=== PATIENT | female | born 1955 | race Two or more races ===

== ENCOUNTER 2024-06-14 14:47 | Inpatient (IN) | payer OTHER ==
[~2024-06-14] VITALS: Ht 170.2 cm; Wt 49.4 kg
[~2024-06-14 14:47] MED LIST: FURO20TA3 PO; METO25TA93 PO; SACU1TAB PO
[2024-06-14 18:38] VITALS: BP 168/106; PULSE 109; RESP 20; TEMP 97.6; O2SAT 96
[2024-06-14] MEDS ORDERED: MORPHINE SULFATE INJ 2 MG/ml SYRG IV PRN ×2 (18:45)
[2024-06-14] MEDS ORDERED: ONDANSETRON HCL 4 MG/2 ML VIAL IV PRN (18:45)
[2024-06-14] MEDS ORDERED: NITROGLYCERIN 0.4 MG SL TAB SL PRN (18:45)
[2024-06-14 20:00] VITALS: PULSE 83; PULSE 91; RESP 18; O2SAT 96
[2024-06-15] VITALS (15 sets, daily range): BP systolic 97–153; BP diastolic 30–102; PULSE 72–108; RESP 16–98; TEMP 97.5–98.4; O2SAT 95–100
[2024-06-15 00:22] LABS: Urine Bacteria None Seen /hpf (None Seen)
[2024-06-15 00:31] LABS: Urine Blood Negative /uL (Negative); Urine Clarity Clear (Clear); Urine Color Colorless (Yellow); Urine Protein, UAD Negative (Negative); Urine Specific Gravity 1.011 (1.001-1.035); Urine Urobilinogen Normal (Negative); Urine WBC 22 /hpf (0 - 5)
--- NOTE | 2024-06-15 02:13 | DVHHP2 ---
CYN RUSH STONE TRIMMER 06/15/24 0213: History of Present Illness Reason for Visit: Shortness of Breath History of Present Illness Daysi Bautista is a 68 y.o. female patient with history of heart failure and hypertension who presents with a chief complaint shortness of breath. The patient states that she had a similar episode 2 to 3 weeks ago and was seen at the [facility] had pleural effusions drained bilaterally. Patient followed up with employee relation manager who took her off Diuretics. Patient endorses shortness of breath is worsened With walking. Is unable to tolerate Laying back. Patient denies fevers, chills,Dizziness, chest pain, Recent illness, Leg swelling. Initially seen and treated at [facility] And transferred to [facility] per O request. Initial findings as follow Labs W 14.07, H&H 10.5/33.4, PLT 721 Na 142, K4.0, BUN 32, creatinine 1.70, GFR 33 Bnp 45,321 Troponin 28 LA 2.1/2.1/1.4 UA negative CXR: small right sided pleural fusion. By basilar airspace disease which may represent Evelyn versus pneumonia. Mild to moderate reticular markings at the bilateral lung monteiro which may represent pulmonary edema versus underlying interstitial lung disease. ECG sinus tachycardia 114 Cardiovascular: CHF, HTN Smoke: No ALCOHOL: none Drugs: None Lives: with Family Review of Systems Constitutional: No: Fever, Chills, Sweats, Weakness, Malaise, Other Eyes: No: Pain, Vision change, Conjunctivae inflammation, Eyelid inflammation, Other, Redness ENT: No: Ear pain, Ear discharge, Nose pain, Nose discharge, Nose congestion, Mouth pain, Mouth swelling, Throat pain, Throat swelling, Other Respiratory: Shortness of breath, SOB with excertion; No: Cough, Dry, Wheezing, Hemoptysis, Pleuritic Pain, Sputum, Wheezing, Other Cardiovascular: No: Chest Pain, Palpitations, Orthopnea, Paroxysmal Noc. Dyspnea, Edema, Lt Headedness, Other Gastrointestinal: No: Nausea, Vomiting, Abdominal Pain, Diarrhea, Constipation, Melena, Hematochezia, Other Genitourinary: No Dysuria, No Frequency, No Incontinence, No Hematuria, No Retention, No Other Musculoskeletal: No: other, neck pain, shoulder pain, arm pain, back pain, hand pain, leg pain, foot pain Skin: No: Rash, Lesions, Jaundice, Bruising, Other Neurological: No: Weakness, Numbness, Incoordination, Change in speech, Confusion, Seizures, Other Allergies: Coded Allergies: NO KNOWN ALLERGIES (Unverified , 06/14/24) Medications Current Medications Medications Dose Ordered Sig/Mariia Route Start Time Stop Time Status Last Admin Dose Admin Nitroglycerin 0.4 mg Q5MINP PRN SL 06/14/24 18:45 Morphine Sulfate 2 mg Q30M PRN IV 06/14/24 18:45 Furosemide 40 mg BIDD IV 06/15/24 06:00 Ondansetron HCl 4 mg Q4HPRN PRN IV 06/14/24 18:45 Famotidine 20 mg DAILY PO 06/15/24 10:00 Morphine Sulfate 2 mg Q4HPRN PRN IV 06/14/24 18:45 Enoxaparin Sodium 40 mg DAILY SC 06/15/24 10:00 Exam Vital Signs Vital Signs Date Time Temp Pulse Resp B/P (MAP) Pulse Ox O2 Delivery O2 Flow Rate FiO2 06/15/24 01:00 98.4 90 18 144/88 (106) 96 98.4 06/14/24 20:00 Room Air* 0 21 General Appearance: Alert, Oriented X3, Cooperative, No acute distress HEENT: Atraumatic, PERRLA, EOMI Respiratory: Clear to auscultation, Normal air movement Cardiovascular: Regular rate, Normal S1, Normal S2 Abdominal: Normal bowel sounds, Soft, No tenderness Extremities: No clubbing, No cyanosis, No edema Skin: No breakdown Neuro: Normal speech Psych/Mental Status: Mental status NL, Mood NL Labs/Xrays Labs Test 06/14/24 23:00 06/14/24 19:18 Range/Units Urine Color Colorless Yellow Urine Clarity Clear Clear Urine pH 5.0 5.0-9.0 Urine Specific [place] 1.011 1.001-1.035 Urine Protein Negative Negative Urine Ketones Negative Negative Urine Blood Negative Negative /uL Urine Nitrite Negative Negative Urine Bilirubin Negative Negative Urine Urobilinogen Normal Negative mg/dL Urine Leukocyte Esterase 1+ Negative /uL Urine RBC 2 0 - 4 /hpf Urine WBC 22 0 - 5 /hpf Urine Squamous Epithelial Cells Few <5 /hpf Urine Bacteria None seen None Seen /hpf Urine Glucose Normal Normal mg/dL Troponin I High Sensitivity 20 </=34 ng/L Assessment/Plan Assessment/Plan Acute on Chronic CHF exacerbation Exertional dyspnea with hypoxia Bilateral pneumonia Leukocytosis Hypertension Plan Admit to telemetry Cardiology consult. Echocardiogram. As needed anti-hypertensive for optimal BP management. Diurese with Lasix. Bronchodilators. As needed supplemental O2 to maintain oxygen saturation greater than 93%. IV ABX Physical therapy evaluation G.I. prophylaxis Pepcid / DVT prophylaxis lovenox Plan discussed with: Patient Date of Service: Jun 15, 2024 Billing Provider: RYAN LIU MD Common Visit Codes: NOT BILLABLE RYAN LIU MD 06/15/24 1437: Review of Systems Allergies: Coded Allergies: NO KNOWN ALLERGIES (Unverified , 06/14/24) Additional Comments Additional Comments Additional Comments Patient was shortness reviewed. Patient was evaluated and admitted by this practitioner. I agree with the nurse practitioner was evaluation, documentation, assessment and care plan as outlined. Patient was evaluated by me this afternoon CYN RUSH NP Jun 15, 2024 02:13 RYAN LIU MD Jun 15, 2024 14:37
--- NOTE | 2024-06-15 04:56 | DVH ---
CHEST RADIOGRAPH Indication:chf Technique: Single frontal view of the chest was obtained Comparison: None FINDINGS: Lines and Tubes: None Lungs: Bilateral interstitial prominence without focal airspace consolidation. Pleura: No effusion. No pneumothorax. Cardiomediastinal contours: Unremarkable Bones: No acute osseous abnormality. IMPRESSION: 1. Bilateral interstitial prominence which may reflect congestion or chronic lung disease. No focal a irspace consolidation.
[2024-06-15] MEDS: FUROSEMIDE 40 MG/4 ML VIAL IV SCH (05:48)
[2024-06-15 06:46] LABS: Basophils # (auto) 0.1 10 ^3/uL (0-0.2); Basophils % (auto) 0.7 % (0.0-2.0); Eosinophils # (auto) 0.3 10 ^3/uL (0-0.8); Hematocrit 30.9 % (36.0-46.0); Hemoglobin 10.4 g/dL (12.2-16.2); Lymphocytes # (auto) 1.7 10 ^3/uL (0.4-5.4); Monocytes # (auto) 0.8 10 ^3/uL (0-1.3)
[2024-06-15 06:48] LABS: Anion Gap 10 (5-15); Carbon Dioxide 23 mmol/L (20-31); Chloride 110 mmol/L (98-107); Lymphocytes % (auto) 18.9 % (10.0-50.0); Mean Corpuscular Hemoglobin 27.3 pg (28.0-32.0); Mean Corpuscular Hgb Conc. 33.6 g/dL (32.0-36.0); Mean Corpuscular Volume 81.2 fL (80.0-100.0); Monocytes % (auto) 8.8 % (0.0-12.0); Neutrophils # (auto) 6.3 10 ^3/uL (1.6-8.6); Neutrophils % (auto) 68.6 % (37.0-80.0); Nucleated Red Blood Cells % 0.1 %; Platelet Count (auto) 747 10^3/uL (140-450); Potassium 3.8 mmol/L (3.5-5.1); Red Cell Distribution Width 17.4 % (11.8-14.3); Sodium 143 mmol/L (136-145); White Blood Cell 9.2 10^3/uL (4.4-10.8)
[2024-06-15 06:53] LABS: INR 1.11 (0.9-1.15); Partial Thromboplastin Time 31.2 SEC (24.5-34.5); Prothrombin Time 11.7 sec (9.3-11.8)
[2024-06-15 06:54] LABS: BUN/Creatinine Ratio 16.9 (10.0-20.0); Blood Urea Nitrogen 33 mg/dL (9-23); Glucose 94 mg/dL (74-106)
[2024-06-15] MEDS: FAMOTIDINE 20 MG TAB PO SCH (10:18)
[2024-06-15] MEDS: cefTRIAXone 1GM/50ML D5W 50 ML IV SCH (10:19)
[2024-06-15] MEDS: ENOXAPARIN SOD 40 MG/0.4 ML SYRINGE SC SCH (10:19)
--- NOTE | 2024-06-15 12:16 | DVHINCON2 ---
Date of service: Jun 16, 2024 History of Present Illness 68 yo F with hx of CHF dx at [facility] on entreto, frail cachexia admitted for ADHF. bnp is very high Past Medical History reviewed Family History: Patient reports no known family medical history. Allergies: Coded Allergies: NO KNOWN ALLERGIES (Unverified , 06/14/24) Home Meds Active Scripts Ipratropium-Albuterol (Ipratropium [place]/Albut) 1 Kathrin Kathrin, 1 KATHRIN IN BID, #90 ML Prov:RYAN LIU MD 06/16/24 Furosemide (Furosemide) 20 Mg Tab, 1 TAB PO DAILY for 30 Days, #30 TAB Prov:RYAN LIU MD 06/16/24 Sacubitril-Valsartan (Entresto 24-26 mg) 1 Tab Tab, 1 TAB PO BID for 30 Days, #60 TAB Prov:RYAN LIU MD 06/16/24 Metoprolol Succinate (Metoprolol Succinate Er) 25 Mg Tab, 1 TAB PO DAILY for 30 Days, #30 TAB Prov:RYAN LIU MD 06/16/24 Current Medications Current Medications Medications (Trade) Dose Ordered Sig/Mariia Route PRN Reason Start Time Stop Time Status Last Admin Nitroglycerin (Ntrostat Sublingual) 0.4 mg Q5MINP PRN SL FOR CHEST PAIN 06/14/24 18:45 Morphine Sulfate 2 mg Q30M PRN IV FOR CHEST PAIN 06/14/24 18:45 Furosemide (Lasix Injection) 40 mg BIDD IV 06/15/24 06:00 06/15/24 05:48 Ondansetron HCl (Zofran) 4 mg Q4HPRN PRN IV NAUSEA / VOMITING 06/14/24 18:45 Famotidine (Pepcid Tablet) 20 mg DAILY PO 06/15/24 10:00 06/15/24 10:18 Morphine Sulfate 2 mg Q4HPRN PRN IV SEVERE PAIN (7-10 PAIN SCALE) 06/14/24 18:45 Enoxaparin Sodium (Lovenox) 40 mg DAILY SC 06/15/24 10:00 06/15/24 10:19 Ceftriaxone Sodium 50 ml @ 100 mls/hr DAILY@09 IV 06/15/24 09:00 06/15/24 10:19 Review of Systems 10 pt ros otherwise negative Vital Signs Vital Signs Date Time Temp Pulse Resp B/P (MAP) Pulse Ox O2 Delivery O2 Flow Rate FiO2 06/15/24 09:30 98.1 95 16 135/97 (110) 96 98.1 06/14/24 20:00 Room Air* 0 21 Physical Exam nad s1 s2 rrr diffuse rhonchi abd soft nt/nd no edema Labs/Diagnostic Data Labs Test 06/15/24 04:38 06/14/24 23:00 Range/Units White Blood Count 9.2 4.4-10.8 10^3/uL Red Blood Count 3.80 L 4.0-5.20 10^6/uL Hemoglobin 10.4 L 12.2-16.2 g/dL Hematocrit 30.9 L 36.0-46.0 % Mean Corpuscular Volume 81.2 80.0-100.0 fL Mean Corpuscular Hemoglobin 27.3 L 28.0-32.0 pg Mean Corpuscular Hemoglobin Concent 33.6 32.0-36.0 g/dL Red Cell Distribution Width 17.4 H 11.8-14.3 % Platelet Count 747 H 140-450 10^3/uL Mean Platelet Volume 7.8 6.9-10.8 fL Neutrophils (%) (Auto) 68.6 37.0-80.0 % Lymphocytes (%) (Auto) 18.9 10.0-50.0 % Monocytes (%) (Auto) 8.8 0.0-12.0 % Eosinophils (%) (Auto) 3.0 0.0-7.0 % Basophils (%) (Auto) 0.7 0.0-2.0 % Neutrophils # (Auto) 6.3 1.6-8.6 10 ^3/uL Lymphocytes # (Auto) 1.7 0.4-5.4 10 ^3/uL Monocytes # (Auto) 0.8 0-1.3 10 ^3/uL Eosinophils # (Auto) 0.3 0-0.8 10 ^3/uL Basophils # (Auto) 0.1 0-0.2 10 ^3/uL Nucleated Red Blood Cells 0.1 % Prothrombin Time 11.7 9.3-11.8 sec Prothrombin Time INR 1.11 0.9-1.15 Activated Partial Thromboplast Time 31.2 24.5-34.5 SEC Sodium Level 143 136-145 mmol/L Potassium Level 3.8 3.5-5.1 mmol/L Chloride Level 110 H 98-107 mmol/L Carbon Dioxide Level 23 20-31 mmol/L Anion Gap 10 5-15 Blood Urea Nitrogen 33 H 9-23 mg/dL Creatinine 1.95 H 0.550-1.02 mg/dL Glomerular Filtration Rate Calc 28 >90 mL/min BUN/Creatinine Ratio 16.9 10.0-20.0 Serum Glucose 94 74-106 mg/dL Calcium Level 10.0 8.7-10.4 mg/dL Troponin I High Sensitivity 19 </=34 ng/L Urine Color Colorless Yellow Urine Clarity Clear Clear Urine pH 5.0 5.0-9.0 Urine Specific [place] 1.011 1.001-1.035 Urine Protein Negative Negative Urine Ketones Negative Negative Urine Blood Negative Negative /uL Urine Nitrite Negative Negative Urine Bilirubin Negative Negative Urine Urobilinogen Normal Negative mg/dL Urine Leukocyte Esterase 1+ Negative /uL Urine RBC 2 0 - 4 /hpf Urine WBC 22 0 - 5 /hpf Urine Squamous Epithelial Cells Few <5 /hpf Urine Bacteria None seen None Seen /hpf Urine Glucose Normal Normal mg/dL Assessment severe chf with low EF suspected drug abuse hx? pt denies /---UDS not checked. should check in future cont entresto pt has CKD as well needs close monitoring with pcp jose orta on dc outpt eval Plan discussed with: Patient CRUZCAMI MD Jun 15, 2024 12:16
[2024-06-15] MEDS: methylPREDNISolone SOD SUCC 40 MG/ML VL IV SCH (17:57)
[2024-06-15] MEDS: FUROSEMIDE 20 MG TAB PO SCH (17:57)
--- NOTE | 2024-06-15 18:33 | DVHINCON2 ---
Date of service: Jun 15, [address] Bynum Reason for Consultation Dyspnea History of Present Illness 68-year-old woman history of CHF, hypertension who presented with shortness of breath. She had a similar episode two weeks ago and was seen at [facility]. She was found to have pleural effusions and had pleural effusions drained. She was recently taken off her diuretics by Cardiology. She notes shortness of breath that has worsened with activity. She notes orthopnea. No fever or chills. No dizziness or chest pain. Pulmonary consultation is called for evaluation of shortness of breath. Review of systems: 14 point review of systems is negative unless otherwise noted above. Past medical history: CHF, hypertension Past surgical history: Prior thoracentesis Medications: Reviewed Allergies: No known drug allergies. Family history: No family history of premature CAD. No family history of lung disease Social history: Nonsmoker. No alcohol or illicit drug use. Lives with family. Family History: Patient reports no known family medical history. Allergies: Coded Allergies: NO KNOWN ALLERGIES (Unverified , 06/14/24) Home Meds Reported Medications Furosemide (Furosemide) 20 Mg Tab, 1 TAB PO DAILY for 30 Days, #30 06/15/24 Sacubitril-Valsartan (Entresto 24-26 mg) 1 Tab Tab, 1 TAB PO BID for 30 Days, #60 06/15/24 Metoprolol Succinate (Metoprolol Succinate Er) 25 Mg Tab, 1 TAB PO DAILY for 30 Days, #30 06/14/24 Current Medications Current Medications Medications (Trade) Dose Ordered Sig/Mariia Route PRN Reason Start Time Stop Time Status Last Admin Nitroglycerin (Ntrostat Sublingual) 0.4 mg Q5MINP PRN SL FOR CHEST PAIN 06/14/24 18:45 Morphine Sulfate 2 mg Q30M PRN IV FOR CHEST PAIN 06/14/24 18:45 Furosemide (Lasix Injection) 40 mg BIDD IV 06/15/24 06:00 06/15/24 14:36 DC 06/15/24 05:48 Ondansetron HCl (Zofran) 4 mg Q4HPRN PRN IV NAUSEA / VOMITING 06/14/24 18:45 Famotidine (Pepcid Tablet) 20 mg DAILY PO 06/15/24 10:00 06/15/24 10:18 Morphine Sulfate 2 mg Q4HPRN PRN IV SEVERE PAIN (7-10 PAIN SCALE) 06/14/24 18:45 Enoxaparin Sodium (Lovenox) 40 mg DAILY SC 06/15/24 10:00 06/15/24 12:46 DC 06/15/24 10:19 Ceftriaxone Sodium 50 ml @ 100 mls/hr DAILY@09 IV 06/15/24 09:00 06/15/24 10:19 Metoprolol Succinate (Toprol Xl) 25 mg DAILY PO 06/16/24 10:00 Enoxaparin Sodium (Lovenox) 30 mg DAILY SC 06/16/24 10:00 Budesonide (Pulmicort) 0.5 mg BID NEB 06/15/24 22:00 Ipratropium [place] (Atrovent Medneb) 0.5 mg Q4HWA NEB 06/15/24 18:00 Albuterol (Ventolin Medneb) 2.5 mg Q4HWA NEB 06/15/24 18:00 Methylprednisolone Sodium Succinate (Solu Medrol) 20 mg Q6HR IV 06/15/24 18:00 06/15/24 17:57 Furosemide (Lasix Tablet) 20 mg BIDD PO 06/15/24 18:00 06/15/24 17:57 Vital Signs Vital Signs Date Time Temp Pulse Resp B/P (MAP) Pulse Ox O2 Delivery O2 Flow Rate FiO2 06/15/24 17:57 153/102 06/15/24 17:02 97.5 108 16 95 97.5 06/15/24 08:00 Room Air* 0 21 Physical Exam Gen.: Patient lying in bed in no apparent distress. On supplemental oxygen. He is breathing comfortably on room air. Head: Normocephalic, atraumatic Eyes: EOMI/PERRLA. Ears: Normal hearing. Normal anatomy. Neck/trachea: Trachea midline, supple. Nose: Normal external anatomy. Mouth: Moist mucous membranes. Chest: Fair air entry bilaterally. No wheezing or rhonchi. Cardio vascular: Positive S1, positive S2. Regular rate and rhythm. Abdomen: Positive bowel sounds in all 4 quadrants. Soft, non-tender, non- distended. : Deferred. Rectal: Deferred Skin: Warm, dry. Extremities: 2+ radial pulses bilaterally. No lower extremity edema. Neuro: Awake, alert, oriented x3. No gross motor or sensory deficits. Cranial nerves II through XII intact. Gait not assessed. Labs/Diagnostic Data Labs Test 06/15/24 04:38 06/14/24 23:00 Range/Units White Blood Count 9.2 4.4-10.8 10^3/uL Red Blood Count 3.80 L 4.0-5.20 10^6/uL Hemoglobin 10.4 L 12.2-16.2 g/dL Hematocrit 30.9 L 36.0-46.0 % Mean Corpuscular Volume 81.2 80.0-100.0 fL Mean Corpuscular Hemoglobin 27.3 L 28.0-32.0 pg Mean Corpuscular Hemoglobin Concent 33.6 32.0-36.0 g/dL Red Cell Distribution Width 17.4 H 11.8-14.3 % Platelet Count 747 H 140-450 10^3/uL Mean Platelet Volume 7.8 6.9-10.8 fL Neutrophils (%) (Auto) 68.6 37.0-80.0 % Lymphocytes (%) (Auto) 18.9 10.0-50.0 % Monocytes (%) (Auto) 8.8 0.0-12.0 % Eosinophils (%) (Auto) 3.0 0.0-7.0 % Basophils (%) (Auto) 0.7 0.0-2.0 % Neutrophils # (Auto) 6.3 1.6-8.6 10 ^3/uL Lymphocytes # (Auto) 1.7 0.4-5.4 10 ^3/uL Monocytes # (Auto) 0.8 0-1.3 10 ^3/uL Eosinophils # (Auto) 0.3 0-0.8 10 ^3/uL Basophils # (Auto) 0.1 0-0.2 10 ^3/uL Nucleated Red Blood Cells 0.1 % Prothrombin Time 11.7 9.3-11.8 sec Prothrombin Time INR 1.11 0.9-1.15 Activated Partial Thromboplast Time 31.2 24.5-34.5 SEC Sodium Level 143 136-145 mmol/L Potassium Level 3.8 3.5-5.1 mmol/L Chloride Level 110 H 98-107 mmol/L Carbon Dioxide Level 23 20-31 mmol/L Anion Gap 10 5-15 Blood Urea Nitrogen 33 H 9-23 mg/dL Creatinine 1.95 H 0.550-1.02 mg/dL Glomerular Filtration Rate Calc 28 >90 mL/min BUN/Creatinine Ratio 16.9 10.0-20.0 Serum Glucose 94 74-106 mg/dL Calcium Level 10.0 8.7-10.4 mg/dL Troponin I High Sensitivity 19 </=34 ng/L Urine Color Colorless Yellow Urine Clarity Clear Clear Urine pH 5.0 5.0-9.0 Urine Specific [place] 1.011 1.001-1.035 Urine Protein Negative Negative Urine Ketones Negative Negative Urine Blood Negative Negative /uL Urine Nitrite Negative Negative Urine Bilirubin Negative Negative Urine Urobilinogen Normal Negative mg/dL Urine Leukocyte Esterase 1+ Negative /uL Urine RBC 2 0 - 4 /hpf Urine WBC 22 0 - 5 /hpf Urine Squamous Epithelial Cells Few <5 /hpf Urine Bacteria None seen None Seen /hpf Urine Glucose Normal Normal mg/dL Assessment Impression: Acute on chronic CHF exacerbation Exertional dyspnea Acute hypoxic respiratory failure Bilateral pneumonia Pleural effusions Atelectasis Leukocytosis Hypertension Cachexia with a BMI of 17.3 Plan: Chest x-ray imaging report reviewed. Bilateral interstitial opacities. Pulmonary edema. No acute opacities. Supplemental oxygen PRN Keep O2 saturation above 92%. Incentive spirometry for atelectasis Continue antibiotics for pneumonia. Bronchodilators as needed Pulmicort twice daily. Diuresis euvolemia. Monitor ins and outs. On Lasix twice daily. Monitor renal function Monitor electrolytes. Supplement as necessary. DVT prophylaxis-Lovenox GI prophylaxis with Pepcid Prognosis: Poor given multiple comorbidities. Rest of plan per hospitalist and other consultants. Thank you Dr. Bynum for allowing me to participate in this patient's care. Further recommendations will depend on patient's clinical course. Please do not hesitate to contact me if you have any questions or concerns. This medical document was created using an electronic medical record system with [employer] dictation system. Although this document has been carefully reviewed, there may still be some phonetic and typographical errors. These areas are purely typographical due to imperfections of the software programs, and do not reflect any compromise in the patient's medical care. Plan discussed with: Patient, Other (RN, MD) PORFIRIO AN MD Jun 15, 2024 18:33
[2024-06-15] MEDS: IPRATROPIUM BROM 0.5 MG/2.5ML INH SOL NEB SCH (19:12)
[2024-06-15] MEDS: ALBUTEROL SULF 2.5 MG/0.5ML(0.5%) NEB SOLN NEB SCH (19:12)
[2024-06-15] MEDS: BUDESONIDE (INHALATION) 0.5 MG/2 ML NEB NEB SCH (22:13)
[2024-06-16] VITALS (12 sets, daily range): BP systolic 141–150; BP diastolic 64–94; PULSE 81–122; RESP 16–20; TEMP 97.8–98; O2SAT 94–100
[2024-06-16 07:21] LABS: Calcium 10.6 mg/dL (8.7-10.4); Chloride 107 mmol/L (98-107); Sodium 141 mmol/L (136-145)
[2024-06-16 07:22] LABS: Anion Gap 12 (5-15); Carbon Dioxide 22 mmol/L (20-31)
[2024-06-16 07:27] LABS: BUN/Creatinine Ratio 21.9 (10.0-20.0); Glucose 140 mg/dL (74-106)
[2024-06-16 07:29] LABS: Blood Urea Nitrogen 48 mg/dL (9-23)
[2024-06-16] MEDS: METOPROLOL SUCCINATE XL 50 MG TAB PO SCH (09:53)
[2024-06-16] MEDS: ENOXAPARIN SOD 30 MG/0.3 ML SYRINGE SC SCH (09:58)
[2024-06-16] MEDS ORDERED: FURO20TA3 PO (15:06)
[2024-06-16] MEDS ORDERED: METO25TA93 PO (15:06)
[2024-06-16] MEDS ORDERED: SACU1TAB PO (15:06)
[2024-06-16] MEDS ORDERED: IPRA0.00 IN (15:06)
--- NOTE | 2024-06-16 15:08 | DVHDS2 ---
Discharge Summary Date of Admission Jun 14, 2024 at 18:34 Date of Discharge: Jun 16, 2024 Labs/Diagnostic Data: Laboratory Results Test 06/16/24 05:50 06/15/24 04:38 06/14/24 23:00 Sodium Level 141 mmol/L (136-145) Potassium Level 4.0 mmol/L (3.5-5.1) Chloride Level 107 mmol/L (98-107) Carbon Dioxide Level 22 mmol/L (20-31) Anion Gap 12 (5-15) Blood Urea Nitrogen 48 mg/dL (9-23) Creatinine 2.19 mg/dL (0.550-1.02) Glomerular Filtration Rate Calc 24 mL/min (>90) BUN/Creatinine Ratio 21.9 (10.0-20.0) Serum Glucose 140 mg/dL (74-106) Calcium Level 10.6 mg/dL (8.7-10.4) White Blood Count 9.2 10^3/uL (4.4-10.8) Red Blood Count 3.80 10^6/uL (4.0-5.20) Hemoglobin 10.4 g/dL (12.2-16.2) Hematocrit 30.9 % (36.0-46.0) Mean Corpuscular Volume 81.2 fL (80.0-100.0) Mean Corpuscular Hemoglobin 27.3 pg (28.0-32.0) Mean Corpuscular Hemoglobin Concent 33.6 g/dL (32.0-36.0) Red Cell Distribution Width 17.4 % (11.8-14.3) Platelet Count 747 10^3/uL (140-450) Mean Platelet Volume 7.8 fL (6.9-10.8) Neutrophils (%) (Auto) 68.6 % (37.0-80.0) Lymphocytes (%) (Auto) 18.9 % (10.0-50.0) Monocytes (%) (Auto) 8.8 % (0.0-12.0) Eosinophils (%) (Auto) 3.0 % (0.0-7.0) Basophils (%) (Auto) 0.7 % (0.0-2.0) Neutrophils # (Auto) 6.3 10 ^3/uL (1.6-8.6) Lymphocytes # (Auto) 1.7 10 ^3/uL (0.4-5.4) Monocytes # (Auto) 0.8 10 ^3/uL (0-1.3) Eosinophils # (Auto) 0.3 10 ^3/uL (0-0.8) Basophils # (Auto) 0.1 10 ^3/uL (0-0.2) Nucleated Red Blood Cells 0.1 % Prothrombin Time 11.7 sec (9.3-11.8) Prothrombin Time INR 1.11 (0.9-1.15) Activated Partial Thromboplast Time 31.2 SEC (24.5-34.5) Troponin I High Sensitivity 19 ng/L (</=34) Urine Color Colorless (Yellow) Urine Clarity Clear (Clear) Urine pH 5.0 (5.0-9.0) Urine Specific [place] 1.011 (1.001-1.035) Urine Protein Negative (Negative) Urine Ketones Negative (Negative) Urine Blood Negative /uL (Negative) Urine Nitrite Negative (Negative) Urine Bilirubin Negative (Negative) Urine Urobilinogen Normal mg/dL (Negative) Urine Leukocyte Esterase 1+ /uL (Negative) Urine RBC 2 /hpf (0 - 4) Urine WBC 22 /hpf (0 - 5) Urine Squamous Epithelial Cells Few /hpf (<5) Urine Bacteria None seen /hpf (None Seen) Urine Glucose Normal mg/dL (Normal) Other Laboratory Tests 06/16/24 05:50 06/15/24 04:38 Brief Hx & Hospital Course: Daysi Bautista is a 68 y.o. female patient with history of heart failure and hypertension who presents with a chief complaint shortness of breath. The patient states that she had a similar episode 2 to 3 weeks ago and was seen at the [facility] had pleural effusions drained bilaterally. Patient followed up with social worker psychiatric who took her off Diuretics. Patient endorses shortness of breath is worsened With walking. Is unable to tolerate Laying back. Patient denies fevers, chills,Dizziness, chest pain, Recent illness, Leg swelling. Initially seen and treated at [facility] And transferred to [facility] per HMO request. She is admitted and treated for her shortness of breath symptoms with the diuretics and breathing treatments. Patient noted to have elevated BNP levels. She is evaluated by social worker psychiatric as well as lens inserter. Echocardiogram showed a poor ejection fraction. Patient is continued on her Entresto and cardiac medications. Patient is advised to restrict oral fluid intake to 1200 mL per 24 hours given the heart failure. Patient also has significant history of smoking and noted to have COPD. Therefore she was advised to continue the breathing treatments with the nebulizer as prescribed. Otherwise she is not oxygenating normally on her room air. Patient is feeling better and requesting to be discharged home. I have talked with the patient regarding her echocardiogram finding results, hospital diagnosis, discharge medications and follow-up plan of care. She has verbalized understanding of these and agree with the discharge care plan as mentioned. Operations or Procedures Conclusion severe dilated cardiomyopathy LVEF 20% by visual estimate left atrium enlarged SIGNED BY: CAMI CRUZ MD SIGNED DATE/TIME: 06/16/24 9305 Condition at Discharge: Stable Final Diagnosis/Problems List copd, chf Discharge Disposition: Home Discharge Instruct/Medications Diet: Consistent carbohydrate, Cardiac 2g Na,low cholest Activity: No Restrictions, As Tolerated Follow Up/Referral: PCP 2 weeks and 2-3 weeks for resp.failure Medications: as prescribed and home meds New Medications: Ipratropium-Albuterol (Ipratropium [place]/Albut) 1 Kathrin Kathrin 1 KATHRIN IN BID, #90 ML Continued Medications: Furosemide (Furosemide) 20 Mg Tab 1 TAB PO DAILY for 30 Days, #30 TAB (This prescription has been renewed) Metoprolol Succinate (Metoprolol Succinate Er) 25 Mg Tab 1 TAB PO DAILY for 30 Days, #30 TAB (This prescription has been renewed) Sacubitril-Valsartan (Entresto 24-26 mg) 1 Tab Tab 1 TAB PO BID for 30 Days, #60 TAB (This prescription has been renewed) Discharge Statement: "Patient was advised to return to the ER or call 911 if any headaches, dizziness, shortness of breath, chest pain, abdominal pain, bleeding, fevers, or worsening of medical condition. Patient was counseled about treatment plan, medications, possible side effects, patientverbalized understanding. All questions were answered to the best of my ability. This discharge took greater then 30 minutes in planning, reviewing documentation, counseling the patient, and discussing with other team members." ASSESSMENT ASSESSMENT Assessment copd, chf RYAN LIU MD Jun 16, 2024 15:08
--- NOTE | 2024-06-16 16:27 | DVHSR ---
APPROVED REPORT EXAM: Two-dimensional and M-mode echocardiogram with Doppler and color Doppler. Blood Pressure: 120/69 mmHg INDICATION CHF RISK FACTORS Height: 67, Weight: 110 DIMENSIONS LVDd6.3 (3.8-5.7cm)LA (2D)4.5 (1.9-4.0cm)Aortic Root4.3 (2.0-3.7cm) LVDs5.7 (2.5-4.0cm)LA (MM) (1.9-4.0cm)Aortic Cusp Exc2.0 (1.5-2.0cm) EF (%) 20.0 (55-70%)Rt. Atrium4.0 (1.9-4.0cm)Asc. Aorta cm IVSd1.3 (0.7-1.1cm)RV (D) (1.8-2.4cm) PWd1.1 (0.7-1.1cm) Mitral Valve MitralMitral Stenosis E wave0.55m/sMV Mean GR.mmHg A wave0.85m/sMV Peak GR.25mmHg E/A ratio0.62D MVAcm2 DECEL [id number] 1/2 Eoef91ro IVRTmsDop MVA7.73cm2 Aortic Valve Aortic ValveAortic Stenosis V10.70m/Jean Claude Mean GR.3mmHg V21.15m/Jean [place] Peak GR.5mmHg LVOT Diameter2.4 (1.8-2.4cm)Doppler AVA2.75cm2 Pulmonic Valve V20.73m/s Conclusion severe dilated cardiomyopathy LVEF 20% by visual estimate left atrium enlarged
--- NOTE | 2024-06-16 22:10 | DVHPN2 ---
Progress Note - Dictate Date Seen: Jun 16, 2024 Medical Necessity Reason Pt with a Central, PICC or Fol: No Subjective Patient seen and examined at bedside. Breathing comfortably on room air. Overnight events reviewed. vital signs Vital Sign Date Time Temp Pulse Resp B/P (MAP) Pulse Ox O2 Delivery O2 Flow Rate FiO2 06/16/24 15:13 101 18 99 06/16/24 15:10 97.9 06/16/24 15:07 Room Air 06/16/24 15:07 0 21 06/16/24 13:00 150/64 (92) Total Intake and Output 06/15/24 06/15/24 06/16/24 15:00 23:00 07:00 Intake Total 500 ml 1100 ml 400 ml Balance 500 ml 1100 ml 400 ml objective Gen.: Patient lying in bed in no apparent distress. Breathing on room air. Head: Normocephalic, atraumatic. Eyes: EOMI/PERRLA. Ears: Normal hearing. Normal anatomy. Neck/trachea: Trachea midline, supple. Nose: Normal external anatomy. Mouth: Moist mucous membranes. Chest: Decreased air entry bilaterally. No wheezing or rhonchi. Cardiovascular: Positive S1, positive S2. Regular rate and rhythm. Abdomen: Positive bowel sounds in all 4 quadrants. Soft, non-tender, non- distended. : Deferred. Rectal: Deferred. Skin: Warm, dry. Intact. Extremities: 2+ radial pulses bilaterally. No lower extremity edema. Neuro: Awake, alert, oriented x3. No gross motor or sensory deficits. Cranial nerves II through XII intact. Gait not assessed. laboratory and microbiology Laboratory Tests 06/16/24 05:50 06/15/24 04:38 Test 06/16/24 05:50 Range/Units Serum Glucose 140 H 74-106 mg/dL Assessment/Plan Impression: Acute on chronic CHF exacerbation Exertional dyspnea Acute hypoxic respiratory failure Bilateral pneumonia Pleural effusions Atelectasis Leukocytosis Hypertension Cachexia with a BMI of 17.3 Events: Breathing on room air No respiratory distress. Incentive spirometry Continue bronchodilators Complete steroid course. Patient is stable for discharge from the pulmonary standpoint. Labs and imaging reviewed. Rest of plan as noted below. Plan: Chest x-ray imaging report reviewed. Bilateral interstitial opacities. Pulmonary edema. No acute opacities. Supplemental oxygen PRN Keep O2 saturation above 92%. Incentive spirometry for atelectasis Continue antibiotics for pneumonia. Bronchodilators as needed Pulmicort twice daily. Diuresis euvolemia. Monitor ins and outs. On Lasix twice daily. Monitor renal function Monitor electrolytes. Supplement as necessary. DVT prophylaxis-Lovenox GI prophylaxis with Pepcid Prognosis: Poor given multiple comorbidities. Rest of plan per hospitalist and other consultants. Thank you Dr. Bynum for allowing me to participate in this patient's care. Further recommendations will depend on patient's clinical course. Please do not hesitate to contact me if you have any questions or concerns. This medical document was created using an electronic medical record system with [employer] dictation system. Although this document has been carefully reviewed, there may still be some phonetic and typographical errors. These areas are purely typographical due to imperfections of the software programs, and do not reflect any compromise in the patient's medical care. Plan discussed with: Patient, Other (NATALIE Chavis) PORFIRIO AN MD Jun 16, 2024 22:10
== END 2024-06-16 16:45 | disposition home or self-care (01) | DRG 177 ==
LOC: TELE-CENTR 18:34
PROVIDERS: ADMIT Hospitalist; ATTEND Internal Medicine
DX: J15.69 Pneumonia due to other Gram-negative bacteria (principal); I50.33 Acute on chronic diastolic (congestive) heart failure; J44.0 Chronic obstructive pulmonary disease with (acute) lower respiratory infection; R64 Cachexia; Z68.1 Body mass index [BMI] 19.9 or less, adult; J44.1 Chronic obstructive pulmonary disease with (acute) exacerbation; J15.9 Unspecified bacterial pneumonia; I11.0 Hypertensive heart disease with heart failure; Z79.899 Other long term (current) drug therapy
CPT/HCPCS: 36415; 71045; 80048; 81001; 84484; 85025; 85610; 85730; 93306; 94640; G0378